=== PATIENT | male | born 1970 | race African-American/Black ===

== ENCOUNTER 2021-08-25 16:16 | Observation (INO) ==
[2021-08-25] MEDS ORDERED: LABETALOL 20 MG/4 ML SYRINGE IV STA (17:55)
[2021-08-25] MEDS ORDERED: ASPIRIN 325 MG TABLET PO STA (17:55)
[2021-08-25 18:04] LABS: Basophils % 0.3 % (0.0-0.8); Eosinophils % 0.3 % (0.00-10.9); Hematocrit 44.3 VOL% (42.0-52.0); Hemoglobin 14.9 GM/DL (14.0-18.0); Immature Granulocytes % 0.6 %; Immature Granulocytes Absolute 0.02 #; Lymphocytes # 0.6 10*3/uL (1.4-4.0); Mean Corpuscular HGB Conc 33.6 GM/DL (32-36); Monocytes % 19.5 % (1.7-12.7); Neutrophils % 61.3 % (38.7-73.9); Platelet Count 167 T/CUMM (130-400); Red Blood Count 4.43 MC/CUMM (3.8-5.5); Red Cell Distribution Width 12.4 % (9.3-17.3); White Blood Count 3.4 T/CUMM (4-12)
[2021-08-25 18:16] LABS: Albumin 3.9 G/DL (3.4-5.0); Bilirubin,Total 1.7 MG/DL (0.20-1.00); Calcium 9.2 MG/DL (8.5-10.1); Osmolality,Calculated 271.1 MOS/KG (273-304); Total Protein 8.6 G/DL (6.4-8.2)
[2021-08-25 18:21] LABS: INR 1.2; PT Patient Result 13.1 SECS (10.5-12.0)
[2021-08-25 18:30] LABS: Anisocytosis Slight; Band Neutrophils 1 % (0-10); Eosinophils 1 % (0-10); Lymphocytes 14 % (20-55); Macrocytosis Slight; Platelet Estimate Adequate; Segmented Neutrophils 69 % (50-85); Total Cells Counted 100
[2021-08-25] MEDS ORDERED: FUROSEMIDE 20 MG/2 ML VIAL IV STA (18:34)
[2021-08-25] MEDS ORDERED: FUROSEMIDE 40 MG/4 ML VIAL ONE (19:03)
[2021-08-25] MEDS ORDERED: DEXTROSE 50% 25 GM/50 ML SYRINGE IV PRN (19:24)
[2021-08-25] MEDS ORDERED: hydrALAZINE 20 MG/1 ML VIAL IV PRN (19:24)
[2021-08-25] MEDS ORDERED: GLUCAGON 1 MG VIAL IM PRN (19:24)
[2021-08-25] MEDS ORDERED: ONDANSETRON 4 MG/2 ML VIAL IV PRN (19:24)
[2021-08-25] MEDS ORDERED: POTASSIUM BICARB EFFERVESCENT 20 MEQ TAB.EFF PO STA (19:51)
[2021-08-25] MEDS ORDERED: METOPROLOL TARTRATE 25 MG TABLET PO SCH (21:00)
[2021-08-25] MEDS ORDERED: ENOXAPARIN 40 MG/0.4 ML SYRINGE SUBCUT SCH (21:00)
[2021-08-25] MEDS: INSULIN LISPRO 100 UNIT/ML SUBCUT SCH (23:56)
[2021-08-26 02:55] LABS: Albumin 3.3 G/DL (3.4-5.0); Bilirubin,Total 1.3 MG/DL (0.20-1.00); Calcium 8.7 MG/DL (8.5-10.1); Potassium 2.9 MMOL/L (3.5-5.1); Total Protein 8.1 G/DL (6.4-8.2)
[2021-08-26 03:04] LABS: Risk Ratio 3.92; Thyroid Stimulating Hormone 0.53 uIU/ml (0.358-3.74); VLDL Cholesterol 16.6 MG/DL
[2021-08-26] MEDS ORDERED: MAGNESIUM SULF RIDER 4 GM/100 ML PREMIX IV PRN (05:16)
[2021-08-26] MEDS ORDERED: MAGNESIUM SULF RIDER 2 GM/50 ML PREMIX IV PRN (05:16)
[2021-08-26] MEDS: POTASSIUM CHLORIDE RIDER 10 MEQ/100 ML PREMIX IV PRN ×2 (06:37→09:51)
[2021-08-26] MEDS ORDERED: MAGNESIUM SULF RIDER 4 GM/100 ML PREMIX IV ONE (07:51)
[2021-08-26] MEDS ORDERED: METOPROLOL TARTRATE 25 MG TABLET PO SCH (09:00)
[2021-08-26] MEDS ORDERED: ASPIRIN EC 81 MG TABLET PO SCH (09:00)
[2021-08-26] MEDS ORDERED: CHLORTHALIDONE 25 MG TABLET PO SCH (09:00)
[2021-08-26] MEDS ORDERED: amLODIPine 5 MG TABLET PO SCH (09:00)
[2021-08-26] MEDS ORDERED: PANTOPRAZOLE 40 MG TABLET PO SCH (09:00)
[2021-08-26 09:13] LABS: Basophils % 0.6 % (0.0-0.8); Eosinophils % 0.9 % (0.00-10.9); Hematocrit 43.3 VOL% (42.0-52.0); Lymphocytes # 0.9 10*3/uL (1.4-4.0); Lymphocytes % 27.9 % (21.2-54.2); Mean Corpuscular HGB Conc 34.6 GM/DL (32-36); Mean Corpuscular Volume 98.4 FL (87-102); Mean Platelet Volume 11.6 FL (9.6-12.0); Monocytes % 24.5 % (1.7-12.7); Neutrophils % 46.1 % (38.7-73.9); Platelet Count 132 T/CUMM (130-400); Red Cell Distribution Width 12.1 % (9.3-17.3); White Blood Count 3.3 T/CUMM (4-12)
[2021-08-26 09:39] LABS: Eosinophils 2 % (0-10); Lymphocytes 33 % (20-55); Platelet Estimate Normal; Segmented Neutrophils 43 % (50-85); Total Cells Counted 100
[2021-08-26] MEDS: INSULIN LISPRO 100 UNIT/ML SUBCUT SCH ×2 (10:24→15:00)
[2021-08-26] MEDS ORDERED: POTASSIUM CHLORIDE 20 MEQ TABLET PO ONE (12:04)
[2021-08-26 12:51] VITALS: BP 123/75
== END 2021-08-26 14:57 | disposition home or self-care (01) ==
LOC: N.ED 16:16 → N.EDINP 16:16 → N.TELEN 22:21
PROVIDERS: ADMIT Internal Medicine Geriatric Medicine; ATTEND Internal Medicine Geriatric Medicine